=== PATIENT | female | born 1985 | race Caucasian/White ===

== ENCOUNTER 2019-01-18 01:52 | Emergency (ER) | payer SELFPAY ==
[2019-01-18 01:57] VITALS: BP 123/74
[2019-01-18] MEDS ORDERED: PENICILLIN V POTASSIUM 500 MG TABLET PO ONE (02:27)
[2019-01-18] MEDS ORDERED: HYDROCODONE/ACETAMINOPHEN 5-325 MG (6 TAB/ER DISP) PO PRN (02:27)
--- NOTE | 2019-01-18 02:32 | ER Document Report ---
ED General - General Chief Complaint: Toothache Stated Complaint: TOOTHACHE Time Seen by Provider: 01/18/19 02:14 Notes: Patient is a pleasant 33-year-old female presents with complaint of pain in the right lower molar. He says she had a On the tooth which cough 3 days ago. She was doing fine until today when after drinking liquids her to start throbbing is continued to worsen and pain. No fevers. No facial swelling. No neck swelling. No other complaints at this time. She is tried clove oil and some other [id number] remedies which have not been helping the pain. She said she plans on calling dentist Sunday to try to get in and get her tooth taken care of. TRAVEL OUTSIDE OF THE [place] IN LAST 30 DAYS: No Past Medical History - Social History Smoking Status: Former Smoker Frequency of alcohol use: Rare Drug Abuse: None Family History: Reviewed & Not Pertinent Patient has suicidal ideation: No Patient has homicidal ideation: No Renal/ Medical History: Denies: Hx Peritoneal Dialysis Review of Systems - Review of Systems Notes: My Normal Review Basic REVIEW OF SYSTEMS: CONSTITUTIONAL : Denies fever, chills, or sweats. Denies recent illness. EENT: Dental pain RESPIRATORY: Denies cough, cold, or chest congestion. Denies shortness of breath, difficulty breathing, or wheezing. SKIN: Denies rash or skin lesions. NEUROLOGICAL: Denies altered mental status or loss of consciousness. Denies headache. ALL OTHER SYSTEMS REVIEWED AND NEGATIVE. Physical Exam - Vital signs Vitals: Temp Pulse Resp BP Pulse Ox 97.5 F 86 16 123/74 99 01/18/19 01:56 01/18/19 01:56 01/18/19 01:56 01/18/19 01:56 01/18/19 01:56 - Notes Notes: General Appearance: Well nourished, alert, cooperative, no acute distress, moderate obvious discomfort. Vitals: reviewed, See vital signs table. 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 No surrounding gingival erythema or swelling. No facial swelling. Throat: No tonsillar inflammation, No airway obstruction, No lymphadenopathy Neck: Supple, no neck tenderness, No neck swelling Neuro: speech clear, oriented x 3, normal affect, responds appropriately to questions. Course - Re-evaluation Re-evalutation: 01/18/19 03:39 Patient was placed on penicillin. I talked about using dental cement to try to cover the broken tooth. I encouraged her to follow-up with a dentist as soon as possible for definitive treatment of her tooth. She is encouraged to return to ER if she has any signs of abscess, redness or swelling to the face, neck swelling, difficulty breathing, or difficulty swallowing. Patient agrees with plan and will be discharged home. Dictation of this chart was performed using voice recognition software; therefore, there may be some unintended grammatical errors. - Vital Signs Vital signs: Temp Pulse Resp BP Pulse Ox 97.5 F 86 16 123/74 99 01/18/19 01:56 01/18/19 01:56 01/18/19 01:56 01/18/19 01:56 01/18/19 01:56 Discharge - Discharge Clinical Impression: Pain, dental Condition: Good Disposition: HOME, SELF-CARE Instructions: Oral Narcotic Medication ([facility]), Penicillin V K ([facility]) Additional Instructions: Please follow-up with a dentist this week. Please return to the ER immediately if you have swelling to your face, difficulty breathing, difficulty swallowing. Please go to a pharmacy or medical supply store and ask them for [id number] dental paste or dental cement. This is a paste that you can put over your tooth to help prevent air and liquids from irritating the tooth. Please take antibiotics as prescribed. Please be aware that [place] does have Tylenol (acetaminophen) in it. Please make sure you do not take more than 4000 mg of acetaminophen a day. [place] is a pain medicine we have given you today. Do not drive or care for children after you have taken this medication they will make you sleepy and sometimes impair judgment. Prescriptions: Penicillin V Potassium [Penicillin Vk 500 mg Tablet] 500 mg PO BID #14 tablet
== END 2019-01-18 02:39 | disposition home or self-care (01) ==
LOC: ER 01:52
DX: K08.89 Other specified disorders of teeth and supporting structures (principal); Z87.891 Personal history of nicotine dependence
CPT/HCPCS: 99282